=== PATIENT | male | born 1975 | race Caucasian/White ===

== ENCOUNTER 2022-04-23 22:02 | Emergency (ER) | payer MEDICARE, MEDICAID, SELFPAY ==
[2022-04-23 22:03] VITALS: BP 143/94; PULSE 86; RESP 17; TEMP 36.8; O2SAT 98; BMI 28.1
--- NOTE | 2022-04-23 22:35 | XR_ITS ---
PROCEDURE INFORMATION: Exam: XR Right Knee Exam date and time: 04/23/2022 10:35 PM Age: 46 years old Clinical indication: Patient HX: PT states right knee pain x1.5 days. Nki; Additional info: Pain, no known injury TECHNIQUE: Imaging protocol: Radiologic exam of the Right knee. Views: 3 views. COMPARISON: No relevant prior studies available. FINDINGS: Bones/joints: Normal. Soft tissues: Normal. IMPRESSION: No acute findings.
[2022-04-23 23:01] VITALS: BP 135/82; PULSE 70; O2SAT 99
--- NOTE | 2022-04-23 23:47 | HMH.EDLOEX ---
Discharge Plan Disposition Patient Disposition: Home, Self-Care Prescriptions Prescriptions: New prednisone [prednisone] 20 mg tablet 20 mg PO BID Qty: 10 0RF Referrals Follow up/Referrals: Provider,Referral, MD [Primary Care Provider] - See instructions Clinical Impressions Clinical Impression: Right knee sprain Instructions Patient Instructions: Sprain Discharge ED Provider: Thanh Zelaya Lower Extremity Injury HPI General Chief Complaint: Extremity Injury, Lower Stated Complaint: Right knee pain no accident Time Seen by Provider: 04/23/22 23:47 Mode of Arrival: Family Vehicle Source of Information: Patient, Spouse and Medical Record Limitations: No Limitations Description of Symptoms (Recalled from ER Triage Doc. by RN): Pt c/o R knee pain without known injury. States that yesterday he was cleaning out a trailer and noticed he was having intemittent pain to anterior Knee. States he took Ibuprofen yesterday and it helped but today it has been constant.No swelling noted. 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 History of Present Illness HPI Narrative: atraumatic injury to rt knee with pain with wt bearing - MD complaint: knee injury Onset (ago): day(s) Injury: Right: knee Type of Injury: unknown Place: home Severity: moderate Exacerbating factors: weight bearing Associated symptoms: ambulatory Other symptoms: none Related Data Previous Rx's Medication Instructions Recorded prednisone 20 mg tablet 20 mg PO BID #10 tabs 04/23/22 Allergies Allergy/AdvReac Type Severity Reaction Status Date / Time No Known Allergies Allergy Verified 04/23/22 23:55 [facility] Disclaimer: The information contained in this section may have been updated after the patient was seen, as this information can be updated by other users. Social History Smoking Status: Former smoker alcohol intake: never current occupational status: employed Travel in the last 8 weeks: None ROS Obtained: Yes All systems reviewed & no additional complaints except as documented Physical Exam General General appearance: alert Head Head exam: normocephalic Eye Eye exam: Present PERRL and EOMI ENT ENT exam: Present mucous membranes moist Neck Neck exam: Present trachea midline Respiratory Respiratory exam: Absent respiratory distress Cardiovascular Cardiovascular exam: Present regular rate Expanded Lower Extremity Exam Right: Hip/Pelvis exam: Present pelvis stable Knee exam: Present full ROM, tenderness and knee extension intact; Absent swelling, erythema, effusion, anterior drawer sign or posterior draw sign Neurovascular/Tendon exam: Absent pulse deficit Neurological Exam Neurological exam: Present alert, oriented X3 and CN II-XII intact Psychiatric Psychiatric exam: Present normal affect Skin Skin exam: Absent rash Medical Decision Making Medical Records Medical records reviewed: Yes I reviewed the patient's medical records. Vikram Inquiry Pt receiving controlled substance: No Vital Signs: 04/23/22 22:03 04/23/22 23:01 Temperature 98.3 F Temperature Source Oral Pulse Rate 70 Pulse Rate [Right] 86 Respiratory Rate 17 Blood Pressure 135/82 Blood Pressure [Right Arm] 143/94 H Blood Pressure Mean [Right Arm] 110 Blood Pressure Source [Right Arm] Automatic Cuff 02 Sat by Pulse Oximetry 98 99 Oxygen Delivery Method Room Air Room Air Lab Data Lab results reviewed: Yes I reviewed the patient's lab results. Orders (Tests/Meds): ORDERS Category Date Time Status XR knee RT 3V Stat Exams 04/23/22 22:35 Completed Radiology Data #1: Image(s): Knee Image Reviewed: Yes I have reviewed radiologist's interpretation Preliminary Findings: Normal/NAD and No Fracture Seen Medical Decision Narrative: has rt knee pain will give trial of steroids and refer to ortho and pcp Critical Care Time Critical Care Time Critical Care Time: No Attestation: On 04/23
[2022-04-23 23:59] VITALS: BP 130/82; PULSE 72; RESP 18; TEMP 36.6; O2SAT 97
== END 2022-04-24 00:02 | disposition home or self-care (01) ==
PROVIDERS: Emergency Provider Emergency Medicine
DX: S83.91XA Sprain of unspecified site of right knee, initial encounter (principal); Z79.52 Long term (current) use of systemic steroids; Z87.891 Personal history of nicotine dependence
CPT/HCPCS: 73562; 99283

== ENCOUNTER 2024-03-08 09:46 | Outpatient (CLI) | payer MEDICARE, MEDICAID, SELFPAY ==
[2024-03-08 18:42] LABS: Albumin Level 4.4 g/dl (3.5-5.0); Chloride 105 mmol/L (98-107); Sodium 141 mmol/L (136-145)
[2024-03-08 18:43] LABS: Potassium 4.8 mmoL/L (3.5-5.1)
[2024-03-08 18:45] LABS: Alanine Aminotransferase 12 U/L (12-78); Anion Gap 11.8 mEq/L (5-15); Aspartate Amino Transferase 21 U/L (17-59); Bilirubin,Total 0.7 mg/dl (0.2-1.3); Blood Urea Nitrogen 11 mg/dl (9-20); Carbon Dioxide 29 mmol/L (22.0-30.0); Estimated Glomerular Filt Rate 91 ml/min (>60); GFR (African American) 110 ML/MIN (>60)
[2024-03-08 18:46] LABS: Albumin/Globulin Ratio 1.8 (1.1-1.8); Alkaline Phosphatase 49 U/L (38-126); Calcium 9.4 mg/dl (8.4-10.2); Globulin 2.4 g/dL (1.3-3.2); Glucose 99 mg/dl (74-100); Total Protein,Serum 6.8 g/dl (6.3-8.2)
[2024-03-08 20:08] LABS: Prostate Specific Ag Screen 4.7 ng/ml (0.0-4.0)
== END 2024-03-08 23:59 | disposition home or self-care (01) ==
LOC: LAB.DROPOF 03-09 10:02
PROVIDERS: PCP Nurse Practitioner; Visit Provider Nurse Practitioner
DX: Z87.820 Personal history of traumatic brain injury (principal); Z12.5 Encounter for screening for malignant neoplasm of prostate
CPT/HCPCS: 80053; G0103

== ENCOUNTER 2025-03-04 17:56 | Emergency (ER) | payer MEDICARE, SELFPAY ==
[2025-03-04 18:04] VITALS: BP 153/118; PULSE 84; O2SAT 100
[2025-03-04 18:07] VITALS: BP 153/118; PULSE 90; RESP 16; TEMP 37.2; O2SAT 98; BMI 23.8
[2025-03-04 18:30] VITALS: BP 159/107; PULSE 79; O2SAT 96
--- NOTE | 2025-03-04 18:43 | ED_ITS ---
Discharge Plan Disposition Patient Disposition: Home, Self-Care Condition: Good Prescriptions Prescriptions: No Action No Known Home Medications Referrals Follow up/Referrals: Provider,Referral, MD [Primary Care Provider, Medical] - See instructions Activity Restrictions/Add. Instructions Additional Instructions/Restrictions: Please return to the emergency department with any worsening signs or symptoms, I would recommend utilizing Tylenol and ibuprofen as needed for symptomatic relief, you most likely have a hamstring strain/sprain, monitor for any worsening signs or symptoms. Please follow-up as an outpatient for a ultrasound to rule out a blood clot, less likely at this time. We will call you if the full radiology report shows any actionable results, no news is good news. Clinical Impressions Clinical Impression: Right hamstring muscle strain, Leg pain, right Instructions Patient Instructions: DI for Hamstring Strain, DI for Leg Pain Print Language Print Language: [place] Discharge ED Provider: Franky Vargas General Adult HPI <GALINA Mcgrath - Last Filed: 03/04/25 19:35> General Chief complaint: Extremity Injury, Lower Stated complaint: right leg pain Time Seen by Provider: 03/04/25 18:33 Mode of Arrival: Ambulatory Source of Information: Patient Description of Symptoms (Recalled from ER Triage Doc. by RN): Patient states he has been having pain in the back of his right thigh for the last 2 days. Denies any injury. Patient states he has not taken anything for the pain. History of Present Illness HPI narrative: 49-year-old male presents the emergency department with right sided hamstring pain that is waxing and waning for the last 2 days, patient denies any real trauma or injury per history, however patient states that he may have twisted the wrong way , several days ago, patient denies any back pain, denies any fever chills radicular type symptomatology, denies any numbness or tingling, denies any mid thoracic back pain, denies any neck pain, denies any chest pain shortness of breath nausea vomiting constipation diarrhea, denies any saddle anesthesia, denies any urinary bladder or bowel dysfunction, patient has not yet take anything for the pain, patient denies any alcohol tobacco or drug use, patient has no other real relevant past medical history with the exception of data deficient history of TBI. Initial triage vitals are unremarkable Please note that above description of symptoms, in this electronic medical record under categorization of recalled from ER triage doctor by RN are reflective of an initial nursing assessment, however, is not reflective of my full history and physical exam that was personally taken and clarified. Consequentially, this preceding description of symptoms, which may include the patient's categorized chief complaint in the EMR, do not reflect my personal clinical impression, and the ultimate description of history of present illness and patient stated complaints should be deferred to this section of the note. Unless stated otherwise or congruent with this section of the note, additional signs, symptoms, or incongruence should be interpreted as inaccurate with my clinical impression. Onset (ago): day(s) Related Data Home Medications ?Medication ?Instructions ?Recorded ?Confirmed No Known Home Medications 03/08/2403/05 Allergies Allergy/AdvReac Type Severity Reaction Status Date / Time No Known Allergies Allergy Verified 03/04/25 18:10 [facility] <GALINA Mcgrath - Last Filed: 03/04/25 19:35> [facility] Disclaimer: The information contained in this section may have been updated after the patient was seen, as this information can be updated by other users. Medical History Elevated PSA Hx of traumatic brain injury Encounter for annual health examination Family History Brother Hypertension Diabetes Social History Smoking Status: Never smoker alcohol intake: never current occupational status: unemployed Travel in the last 8 weeks?: None Have you lived/traveled outside US in past 30 days?: No Contact w/someone who lives/traveled outside US past 30 days?: No Exposure to someone with infectious disease in past 14 days?: No Do you have a fever (greater than 100.4 F or 38 C)?: No Have you tested positive for COVID-19?: No Exposed to someone with COVID-19 in past 14 days?: No Do you have a sore throat?: No Do you have a cough?: No Do you have any weakness?: No Do you have any diarrhea?: No Are you experiencing any unusual bleeding?: No Do you have any muscle aches/pain?: No Do you have any abdominal pain?: No Are you experiencing loss of taste or smell?: No Other Medical History Have you received the Pneumonia Vaccine: No <GALINA Mcgrath - Last Filed: 03/04/25 19:35> ROS Obtained: Yes All systems reviewed & no additional complaints except as documented Physical Exam <GALINA Mcgrath - Last Filed: 03/04/25 19:35> General General appearance: alert and in no apparent distress Head Head exam: atraumatic and normocephalic Eye Eye exam: Present PERRL and EOMI ENT ENT exam: Present mucous membranes moist Neck Neck exam: Present normal inspection Chest Chest inspection: Present normal inspection and symmetric chest wall rise Respiratory Respiratory exam: Present normal lung sounds bilaterally; Absent respiratory distress, wheezes or stridor Cardiovascular Cardiovascular exam: Present regular rate and normal rhythm Abdominal Exam Abdominal exam: Present soft; Absent tenderness or guarding Extremities Exam Extremities exam: Present normal inspection, full ROM, tenderness and other (There is mild tenderness palpation to the right posterior hamstring, negative Homans' sign, otherwise neurovascular intact, moves extremities command.) Back Exam Back exam: Present normal inspection and full ROM; Absent tenderness Neurological Exam Neurological exam: Present alert, oriented X3 and other (5 out of 5 strength in the bilateral lower and upper extremities no gross sensation deficit.) Psychiatric Psychiatric exam: Present normal affect Skin Skin exam: Present warm and dry Medical Decision Making <GALINA Mcgrath - Last Filed: 03/04/25 19:35> Medical Records Medical records reviewed: Yes I reviewed the patient's medical records. Screening: Per USPSTF and CDC recommendations, given the prevalence of disease in our region, it is our hospital?s policy to screen for HIV and viral Hepatitis for all patients aged 18 and over and those with ongoing risk factors. Vikram Inquiry Pt receiving controlled substance: No Vikram was queried for this patient: No Vital Signs: 03/04/25 18:04 03/04/25 18:07 03/04/25 18:30 Temperature 99 F Temperature Source Oral Pulse Rate 84 79 Pulse Rate [Right Brachial] 90 Respiratory Rate 16 Blood Pressure 153/118 H 159/107 H Blood Pressure [Right Arm] 153/118 H Blood Pressure Mean Blood Pressure Mean [Right Arm] 129 Blood Pressure Source [Right Arm] Automatic Cuff Blood Pressure Position [Right Arm] Sitting 02 Sat by Pulse Oximetry 100 98 96 Oxygen Delivery Method Room Air Room Air Room Air 03/04/25 19:00 03/04/25 19:30 Temperature Temperature Source Pulse Rate 74 69 Pulse Rate [Right Brachial] Respiratory Rate Blood Pressure 177/116 H 154/100 H Blood Pressure [Right Arm] Blood Pressure Mean 130 118 Blood Pressure Mean [Right Arm] Blood Pressure Source [Right Arm] Blood Pressure Position [Right Arm] 02 Sat by Pulse Oximetry 100 97 Oxygen Delivery Method Orders (Tests/Meds): ED MEDICATIONS Discontinued Medications Generic Name Dose Route Start Last Admin Trade Name Pedro PRN Reason Stop Dose Admin Acetaminophen 500 mg 03/04/25 18:54 03/04/25 19:18 Acetaminophen 500mg Tab PO 03/04/25 18:55 500 mg ONCE ONE Administration Ibuprofen 600 mg 03/04/25 18:54 03/04/25 19:18 Ibuprofen 600 Mg Tablet PO 03/04/25 18:55 600 mg ONCE ONE Administration ORDERS Category Date Time Status XR femur RT 2V Stat Exams 03/04/25 18:54 Taken Medical Decision Narrative: 49-year-old male presents emergency department right hamstring pain, for 2 days that was waxing and waning, no radicular type symptomatology, no other red flag signs or symptoms, differential diagnose include but not limited to, hamstring sprain/strain, leg sprain/strain, IT band syndrome, occult fracture among others. I discussed this patient's case with attending Dr. Vargas Will obtain x-ray of the femur, will give the patient 500 mg Tylenol and 600 mg Motrin p.o. for pain, negative Wells criteria here in the emergency department, however we will set the patient up with outpatient DVT ultrasound, at this time, negative Homans' sign, no entire leg swelling was criteria negative, thus risks and benefits of anticoagulation were weighed, thought anticoagulation will provide no benefit at this time. I along with the attending physician reviewed and independently interpreted the patient's plain film femur x-ray, radiology report is not yet available for my direct interrogation, however patient has no acute bony abnormality per my review. Discussed that patient's x-ray report of his plain film is not yet available for my interrogation, patient would like to be discharged home to self-care, shared decision-making was utilized and this appropriate, I recommend [id number] anti-inflammatory medication such as Tylenol and ibuprofen, most likely patient has muscular strain, will set the patient up with an outpatient DVT ultrasound rule out DVT, however Wells criteria negative this time, thought to be less likely in the setting of the patient symptomatology. Patient voiced understanding and agreement with current treatment plan/discharge plan. Strict ED return precaution given. <Franky Vargas MD - Last Filed: 03/04/25 19:43> Vital Signs: 03/04/25 18:04 03/04/25 18:07 03/04/25 18:30 Temperature 99 F Temperature Source Oral Pulse Rate 84 79 Pulse Rate [Right Brachial] 90 Respiratory Rate 16 Blood Pressure 153/118 H 159/107 H Blood Pressure [Right Arm] 153/118 H Blood Pressure Mean Blood Pressure Mean [Right Arm] 129 Blood Pressure Source [Right Arm] Automatic Cuff Blood Pressure Position [Right Arm] Sitting 02 Sat by Pulse Oximetry 100 98 96 Oxygen Delivery Method Room Air Room Air Room Air 03/04/25 19:00 03/04/25 19:30 Temperature Temperature Source Pulse Rate 74 69 Pulse Rate [Right Brachial] Respiratory Rate Blood Pressure 177/116 H 154/100 H Blood Pressure [Right Arm] Blood Pressure Mean 130 118 Blood Pressure Mean [Right Arm] Blood Pressure Source [Right Arm] Blood Pressure Position [Right Arm] 02 Sat by Pulse Oximetry 100 97 Oxygen Delivery Method Orders (Tests/Meds): ED MEDICATIONS Discontinued Medications Generic Name Dose Route Start Last Admin Trade Name Pedro PRN Reason Stop Dose Admin Acetaminophen 500 mg 03/04/25 18:54 03/04/25 19:18 Acetaminophen 500mg Tab PO 03/04/25 18:55 500 mg ONCE ONE Administration Ibuprofen 600 mg 03/04/25 18:54 03/04/25 19:18 Ibuprofen 600 Mg Tablet PO 03/04/25 18:55 600 mg ONCE ONE Administration ORDERS Category Date Time Status XR femur RT 2V Stat Exams 03/04/25 18:54 Taken Medical Decision Narrative: 49-year-old male presents emergency department right hamstring pain, for 2 days that was waxing and waning, no radicular type symptomatology, no other red flag signs or symptoms, differential diagnose include but not limited to, hamstring sprain/strain, leg sprain/strain, IT band syndrome, occult fracture among others. I discussed this patient's case with attending Dr. Vargas Will obtain x-ray of the femur, will give the patient 500 mg Tylenol and 600 mg Motrin p.o. for pain, negative Wells criteria here in the emergency department, however we will set the patient up with outpatient DVT ultrasound, at this time, negative Homans' sign, no entire leg swelling was criteria negative, thus risks and benefits of anticoagulation were weighed, thought anticoagulation will provide no benefit at this time. I along with the attending physician reviewed and independently interpreted the patient's plain film femur x-ray, radiology report is not yet available for my direct interrogation, however patient has no acute bony abnormality per my review. Discussed that patient's x-ray report of his plain film is not yet available for my interrogation, patient would like to be discharged home to self-care, shared decision-making was utilized and this appropriate, I recommend [id number] anti-inflammatory medication such as Tylenol and ibuprofen, most likely patient has muscular strain, will set the patient up with an outpatient DVT ultrasound rule out DVT, however Wells criteria negative this time, thought to be less likely in the setting of the patient symptomatology. Patient voiced understanding and agreement with current treatment plan/discharge plan. Strict ED return precaution given. Franky Vargas MD: I was consulted by the JACQUI, and we discussed the complexity of the problems being addressed. I approved the treatment and management plan for this patient's care in the emergency department, thus performing a substantive portion of the medical decision making. Critical Care <GALINA Mcgrath - Last Filed: 03/04/25 19:35> Critical Care Time Critical Care Time: No
--- NOTE | 2025-03-04 18:54 | XR_ITS ---
PROCEDURE INFORMATION: Exam: XR Right Femur Exam date and time: 03/04/2025 7:12 PM Age: 49 years old Clinical indication: Pain; Thigh; Right; Additional info: Right hamstring pain TECHNIQUE: Imaging protocol: Radiologic exam of the right femur. Views: 2 views. COMPARISON: CR XR KNEE RT 3V 04/23/2022 10:35 PM FINDINGS: Bones/joints: No acute fracture. No dislocation. Soft tissues: Unremarkable. IMPRESSION: No fracture. If there is concern for hamstring injury, suggest MRI.
[2025-03-04 19:00] VITALS: BP 177/116; PULSE 74; O2SAT 100
[2025-03-04] MEDS: IBUPROFEN 600 MG TABLET PO (19:18)
[2025-03-04] MEDS: ACETAMINOPHEN 500MG TAB 500 MG PO (19:18)
[2025-03-04 19:30] VITALS: BP 154/100; PULSE 69; O2SAT 97
[2025-03-04 19:46] VITALS: BP 148/80; PULSE 84; RESP 16; TEMP 36.6; O2SAT 99
== END 2025-03-04 19:47 | disposition home or self-care (01) ==
PROVIDERS: Emergency Provider Emergency Medicine
DX: S76.311A Strain of muscle, fascia and tendon of the posterior muscle group at thigh level, right thigh, initial encounter (principal); M79.604 Pain in right leg; X50.1XXA Overexertion from prolonged static or awkward postures, initial encounter
CPT/HCPCS: 73552; 99283; 99284

== ENCOUNTER 2025-03-06 11:41 | Outpatient (CLI) | payer MEDICARE, SELFPAY ==
--- NOTE | 2025-03-06 | CA_ITS ---
FINAL REPORT CLINICAL HISTORY: RT THIGH PAIN,NKI COMPARISON: None FINDINGS: DUPLEX VENOUS SONOGRAPHY OF THE RIGHT LOWER EXTREMITY Multiple transverse and longitudinal scans were performed of the femoropopliteal deep venous system, with augmentation and compression maneuvers. HISTORY: Pain FINDINGS: Normal phasic flow was noted in the visualized deep venous system. No intraluminal increased echogenicity is noted to suggest thrombus. There is normal compression and augmentation of the venous structures. No abnormal venous collaterals are seen. Note is made of a hypoechoic focus in the popliteal fossa that like presents a Curiel's cyst. IMPRESSION: No evidence of deep venous thrombosis of the right lower extremity. Reviewed, Interpreted and Dictated by Yanira Roblero MD Transcribed by Calli Dickey Authenticated and [facility]
== END 2025-03-06 23:59 | disposition home or self-care (01) ==
LOC: RT 11:42
PROVIDERS: Visit Provider Emergency Medicine
DX: M79.604 Pain in right leg (principal)
CPT/HCPCS: 93971